=== PATIENT | male | born 1950 | race Caucasian/White ===

== ENCOUNTER 2025-08-23 11:32 | Inpatient (IN) ==
[2025-08-23] MEDS: SODIUM CHLORIDE 0.9% 1,000 ML IV SCH ×2 (12:10→17:10)
--- NOTE | 2025-08-23 12:18 | Emergency Department Note ---
Impression & Plan Leukocytosis, Acute hypotension, Acute dehydration, Elevated troponin ED Provider Note NAME: ALBANIA DUMAS AGE: 74 SEX: M : 1950 ARRIVES VIA: Walk-In INFORMANT: Patient, ED PROVIDER(S): Sergei Chaudhari MD CHIEF COMPLAINT: Weakness, fatigue MEDICAL DECISION MAKING: Patient presents due to concern for weakness and fatigue patient has had associated body aches and chills. IV was established and blood work was obtained along with COVID flu and RSV testing. The patient was ordered IV fluids and the patient was noted to be hypotensive with the patient tachycardia that was noted in triage is improved at rest at the bedside. Patient with a white count of 15. Patient did complain of generalized bodyaches and chills but no other discrete obvious symptoms. The patient's chest x-ray does not show evidence of obvious pneumonia. Hemoglobin is normal with normal platelet count. Kidney function with CAMILA baseline creatinine of around 1 almost 2 today. Patient's initial troponin 35.4. Patient does not have any active chest pain and the patient's EKG does not show evidence of obvious STEMI. Likely demand ischemia or potentially related to this fluttering in the chest unclear as to whether or not the patient had an tachyarrhythmia earlier today. Given the patient's white counts patient was ordered empiric IV Rocephin blood cultures and a lactate. Procalcitonin also ordered. Patient's lactate is normal. Pro-Jordan is elevated at 5.3. I did speak the on-call hospitalist service Kiera Ferrer PA-C and the patient was admitted by Dr. Oviedo. Discussion w/ other healthcare providers: Kiera Ferrer PA-C and Dr. Oviedo Prior /Outside records reviewed: None Differential diagnosis: Infection, dehydration, metabolic abnormality, hypo/hyperglycemia, electrolyte imbalance, anemia, UTI, pneumonia, thyroid dysfunction among others were considered. Diagnostics, as interpreted by me: ECG: Normal sinus rhythm, rate of 98, normal intervals, normal axis no ST elevations. Cardiac monitoring: An order was placed for continuous cardiac monitoring. The monitor shows a rate of 89 with sinus rhythm. Patient was placed on pulse oximetry Medical decision rules: None Imaging studies: I informally interpreted the patient's chest x-ray without obvious pneumonia with formal report to follow. HPI: Patient presents due to concern for weakness and fatigue. The patient reports that his symptoms began on Friday. He states that he felt improved Friday he went to a wrestling match but before the end of the match she was "wanting to go home" as he was being able to feel unwell again. Patient states that he has had some nausea but no vomiting. He states that he had some looser stools today. He denies any chest pains or shortness of breath. He denies any known sick contacts or recent travel. He denies any dysuria. He reports that he has had some associated fluttering in his chest. The patient states that he has had several bouts although it was more pronounced today for about 2 or 3 hours. Patient states this has resolved. He denies any prior history of known atrial flutter or fibrillation or known arrhythmia. PAST MEDICAL HISTORY: See Below PAST SURGICAL HISTORY: See Below SOCIAL HISTORY: See Below HOME MEDICATIONS: See Below ALLERGIES: See Below VITALS: See Below PHYSICAL EXAMINATION: GENERAL: NAD, non-toxic. EYE EXAM: Normal conjunctiva. PERRL, no anisocoria and EOM's grossly intact w/o pain. OROPHARYNX: Moist mucus membranes, grossly normal dentition. NECK: Trachea midline, no stridor. LUNGS: Clear to auscultation. Normal chest wall mechanics. HEART: NSR, no MRG. ABDOMEN: Abdomen soft, non-tender, no masses, no rebound or guarding. BACK: No CVA TTP. SKIN: No rashes and no bruising. UPPER EXTREMITIES: Upper extremities are grossly normal. LOWER EXTREMITIES: Grossly normal, no edema. NEURO EXAM: Awake and alert, follows commands, no obvious facial asymmetry, normal speech, moves all 4 extremities. Past Med/Surg History Problem List Elevated troponin (Acute) Acute dehydration (Acute) Acute hypotension (Acute) Leukocytosis (Acute) Hydronephrosis Sensorineural hearing loss (SNHL) of both ears Cerumen debris on tympanic membrane of left ear Hearing difficulty of left ear Prediabetes Chronic pelvic pain in male Diffusion capacity of lung (dl), decreased Chronic cough Mitral regurgitation Abnormal stress test Dyspnea on exertion Acute prostatitis Health care maintenance Elevated PSA Gastrointestinal complaints (Chronic) BPH (benign prostatic hyperplasia) (Acute) Cough variant asthma (Acute) Hyperlipidemia (Acute) Hypertension (Acute) Neuropathy (Acute) Peroneal neuropathy (Acute) Polyp, colonic (Acute) Medical History History of colon polyps maybe per pt Feeling of incomplete bladder emptying follows urology. History of hypertension hx medication and since d/c'd. Pt reports had a "one day spike" approx 09/2024, no dr eval for/resolved by the next day and no re-occurence since. 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 Has done multiple 5 k's since then and he has been fine. Hyperlipidemia Neuropathy both legs Frequent episodes of bronchitis usually 2x per yr/has occured off and on since last may 2024/last occurence mid november 2024. no current s/s. Cough variant asthma hx approx - no problems with it in yrs. Prediabetes BPH (benign prostatic hyperplasia) History of COVID-19 hx + test 07/2022 - no hx hospitalization. History of prostatitis Surgical History History of left cataract surgery (2019) History of right cataract surgery (2019) History of colonoscopy hx frequent diarrhea following colonoscopy 04/07/19 (Dr. Allen, [facility]) / consulted with and thought to be viral. Diarrhea resolved and no problems since. Has had prior colonoscopy since and no problems. History of neck surgery birthmark removed Family History Father Alzheimer disease Colonic polyp Grandmother (Paternal) Diabetes Mother Kidney disease Family history of reaction to anesthesia mom had kidney problems, when she had anesthesia kidneys were affected but would resolve. 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 Feels Safe at Home: Yes Childhood Exposure to Second-Hand Smoke: No Dental Care, Regularly: Yes Physical Activity Frequency: Daily Physical Activity Frequency Comment: walking, running Seatbelt Use: always Sunscreen Use: No Assistive Devices: Glasses Allergies Allergies Allergy/AdvReac Type Severity Reaction Status Date / Time doxycycline Allergy Unknown Rash Verified 02/09/25 09:44 Home Meds Home Medications Medication Instructions Recorded Confirmed multivitamin (Daily Multi-Vitamin 1 tab PO DAILY 01/23/21 08/23/25 tablet) gabapentin 100 mg capsule 0 mg PO UD 01/28/25 08/23/25 rosuvastatin 20 mg tablet 20 mg PO HS 01/28/25 08/23/25 zinc 50 mg tablet 0 mg PO DAILY 01/28/25 08/23/25 cyanocobalamin (vitamin B-12) 1,000 mcg sublingual DAILY 02/04/25 08/23/25 1,000 mcg sublingual tablet tamsulosin 0.4 mg capsule 0.4 mg PO .Q OTHER DAY 08/23/25 08/23/25 Previous Rx's Medication Instructions Recorded amitriptyline 25 mg tablet 25 mg PO Q OTHER DAY #30 tabs 08/31/24 cholecalciferol (vitamin D3) 50 50 mcg PO DAILY #90 caps 11/16/24 mcg (2,000 unit) capsule finasteride 5 mg tablet 5 mg PO HS #90 tabs 02/14/25 Results & Data (ED) Vital Signs Vital Signs - 24 hr 08/23/25 11:40 08/23/25 12:17 08/23/25 13:33 Temperature 36.0 C L Temperature Source Temporal Artery Scan Pulse Rate 103 H 81 Pulse Rate [Right Finger] 80 Pulse Rate from SpO2 Sensor Respiratory Rate 20 18 Respiratory Effort / Characteristics Non-Labored Spontaneous Respiratory Depth Normal Normal Respiratory Pattern Regular Blood Pressure 82/49 L Blood Pressure [Right Arm] 114/70 Blood Pressure Mean 60 Blood Pressure Mean [Right Arm] 84 Pulse Oximetry 99 95 Oxygen Delivery Method Room Air Room Air Sepsis Recent Fever Within 48 Hours No Sepsis New/Unexplained Change in Mental Status No Sepsis Action Taken by Nursing No Action Required 08/23/25 14:41 08/23/25 15:00 08/23/25 15:30 Temperature Temperature Source Pulse Rate 74 77 Pulse Rate [Right Finger] 74 Pulse Rate from SpO2 Sensor 75 77 Respiratory Rate 18 15 12 Respiratory Effort / Characteristics Respiratory Depth Normal Respiratory Pattern Regular Blood Pressure 117/83 142/72 H Blood Pressure [Right Arm] 98/70 L Blood Pressure Mean 96 94 Blood Pressure Mean [Right Arm] 79 Pulse Oximetry 98 97 97 Oxygen Delivery Method Room Air Room Air Room Air Sepsis Recent Fever Within 48 Hours Sepsis New/Unexplained Change in Mental Status Sepsis Action Taken by Residential Medications Current Medication List: was personally reviewed by me Laboratory Data Attestation: I reviewed the patient's lab results. 08/23/25 11:55 08/23/25 11:55 Lab Results 08/23/25 08/23/25 08/23/25 Range/Units 11:55 12:11 14:12 WBC 15.30 H (4.8-10.8) K/ul RBC 5.21 (4.70-6.10) M/uL Hgb 15.6 (14.0-18.0) g/dL Hct 46.2 (42.0-52.0) % MCV 88.7 (80.0-100.0) fL MCH 29.9 (25.0-34.0) pg MCHC 33.8 (32.0-36.0) g/dL RDW Std Deviation 43.9 (36.4-46.3) fL RDW Coeff of Elana 13.4 (11.5-14.5) % Plt Count 221 (130-400) K/uL MPV 11.1 (9.4-12.4) fL Immature Gran % (Auto) 0.8 % Neut % (Auto) 82.6 % Lymph % (Auto) 7.7 % [place] % (Auto) 8.4 % Eos % (Auto) 0.2 % Baso % (Auto) 0.3 % Neut # (Auto) 12.64 H (1.40-6.50) K/uL Lymph # (Auto) 1.18 L (1.20-3.40) K/uL [place] # (Auto) 1.28 H (0.11-0.59) K/uL Eos # (Auto) 0.03 (0.00-0.50) K/uL Baso # (Auto) 0.05 (0.00-0.20) K/uL Immature Gran # (Auto) 0.12 (0.01-0.20) K/uL Sodium 138 (136-145) mmol/L Potassium 4.0 (3.5-5.1) mmol/L Chloride 102 (98-107) mmol/L Carbon Dioxide 24 (21-32) mmol/L Anion Gap 12 H (3-11) BUN 33 H (6-23) mg/dl Creatinine 1.92 H (0.6-1.4) mg/dl Est Cr Clr Drug Dosing 40.2 ml/min eGFR 35.66 BUN/Creatinine Ratio 17.2 (10-20) Glucose 153 H (70-99(Fasting)) mg/dl Lactate 1.3 (0.4-2.0) mmol/L Calcium 9.5 (8.6-10.3) mg/dl Total Bilirubin 1.2 H (0.2-1.0) mg/dl AST 40 H (13-39) U/L ALT 36 (7-52) U/L Alkaline Phosphatase 73 (34-104) U/L Troponin I High Sens 35.4 H (0-20) pg/ml Total Protein 7.3 (6.0-8.3) gm/dl Albumin 4.2 (3.4-5.0) gm/dl Globulin 3.1 (2.5-4.0) gm/dl Albumin/Globulin Ratio 1.4 (0.9-2) Procalcitonin 5.32 H (0-0.5) ng/ml TSH 4.685 H (0.300-4.500) uIu/ml Free T4 0.83 (0.61-1.60) ng/dl SARS-CoV-2 (PCR) NEGATIVE (Negative) Influenza Type A (PCR) Negative (Neg) Influenza Type B (PCR) Negative (Neg) RSV (RT-PCR) Negative (Neg) Administered Medications Sodium Chloride (Nss) 1,000 mls @ 80 mls/hr IV .[id number] QUITA Stop: 08/26/25 15:44 Last Admin: 08/23/25 17:10 Dose: 80 mls/hr Documented By: GARO Discontinued Medications Sodium Chloride (Nss) 1,000 mls @ 999 mls/hr IV .[id number] QUITA Stop: 08/23/25 13:15 Last Infusion: 08/23/25 14:42 Dose: Infused Documented By: Admin: 08/23/25 12:10 Dose: 999 mls/hr Documented By: ANDREW Ceftriaxone Sodium (Rocephin) 2,000 mg in 50 mls @ 100 mls/hr IV NOW STA Stop: 08/23/25 14:46 Last Infusion: 08/23/25 16:46 Dose: Infused Documented By: Admin: 08/23/25 14:42 Dose: 100 mls/hr Documented By: Imaging Data Radiologist's Impression: Chest X-Ray 08/23/25 11:48 XR chest 1V portable HISTORY: 74 years-old Male weakness COMPARISON: 11/16/2024 TECHNIQUE: AP view the chest FINDINGS: Cardiomediastinal and hilar silhouettes are within normal limits. Right lung apex is partially outside the field of view. No pneumothorax, pleural effusion, airspace consolidation or pulmonary edema. Bones of the chest appear grossly intact. IMPRESSION: No acute process of the chest. ACT 112: Negative or not required by law. The above report was generated using voice recognition software. It may contain grammatical, syntax or spelling errors. Electronically signed by: Devin Leung M.D. 08/23/2025 12:39 PM Discharge Plan Visit Data Chief Complaint: Flu Like Symptoms Stated Complaint: WEAKNESS, CHILLS DAIREAH, IRREGULAR HEART BEAT ED Provider: Sergei Chaudhari Discharge Problem: Leukocytosis, Acute hypotension, Acute dehydration, Elevated troponin Patient Disposition: Admitted As Inpatient Condition: Good Discharge Problem: Leukocytosis Qualifiers: Leukocytosis type: unspecified Qualified Code(s): D72.829 - Elevated white blood cell count, unspecified
[2025-08-23 12:35] LABS: Hematocrit (blood only) 46.2 % (42.0-52.0); Hemoglobin 15.6 g/dL (14.0-18.0); Immature Granulocytes # (auto) 0.12 K/uL (0.01-0.20); Immature Granulocytes % (auto) 0.8 %; Mean Corpuscular Hemoglobin 29.9 pg (25.0-34.0); Mean Corpuscular Volume 88.7 fL (80.0-100.0); Platelet Count 221 K/uL (130-400); RDW Standard Deviation 43.9 fL (36.4-46.3); Red Blood Count 5.21 M/uL (4.70-6.10); White Blood Count 15.30 K/ul (4.8-10.8)
--- NOTE | 2025-08-23 12:41 | XRay Report ---
XR chest 1V portable HISTORY: 74 years-old Male weakness COMPARISON: 11/16/2024 TECHNIQUE: AP view the chest FINDINGS: Cardiomediastinal and hilar silhouettes are within normal limits. Right lung apex is partially outsid e the field of view. No pneumothorax, pleural effusion, airspace consolidation or pulmonary edema. Luke ravinder of the chest appear grossly intact. IMPRESSION: No acute process of the chest. ACT 112: Negative or not required by law. The above report was generated using voice recognition software. It may contain grammatical, syntax o r spelling errors. Electronically signed by: Devin Leung M.D. 08/23/2025 12:39 PM
[2025-08-23 12:49] LABS: Alanine Aminotransferase 36.0 U/L (7-52); Albumin Globulin Ratio 1.4 (0.9-2); Albumin Level 4.2 gm/dl (3.4-5.0); Alkaline Phosphatase 73.0 U/L (34-104); Anion Gap 12.0 (3-11); Bilirubin,Total 1.2 mg/dl (0.2-1.0); Blood Urea Nitrogen 33.0 mg/dl (6-23); Calcium 9.5 mg/dl (8.6-10.3); Carbon Dioxide 24.0 mmol/L (21-32); Chloride 102.0 mmol/L (98-107); Creatinine Clr Calc Pharmacy 40.2 ml/min; Globulin 3.1 gm/dl (2.5-4.0); Glucose 153.0 mg/dl (70-99(Fasting)); Potassium 4.0 mmol/L (3.5-5.1); Sodium 138.0 mmol/L (136-145); Total Protein 7.3 gm/dl (6.0-8.3)
[2025-08-23 13:03] LABS: Thyroid Stimulating Hormone 4.685 uIu/ml (0.300-4.500)
[2025-08-23 13:23] LABS: Influenza A virus by PCR Negative (Neg); Influenza B virus by PCR Negative (Neg); SARS CoV2 RNA(COVID-19) Ceph NEGATIVE (Negative)
[2025-08-23 13:38] LABS: T4 Free Thyroxine 0.83 ng/dl (0.61-1.60)
--- NOTE | 2025-08-23 14:40 | Hospitalist Progress Note ---
"Date of Service August 23, 2025 Assessment & Plan (1) Weakness: (2) Diarrhea: (3) Palpitations: (4) CAMILA (acute kidney injury): Plan Pt is a 74 y/o M with a PMHx significant for HTN, HLD, BPH, Asthma, Neuropathy, Prediabetes who presented to the ED c/o weakness and diarrhea #Weakness | Diarrhea | Palpitations - Troponin in ED 35.4; EKG on admission w/out signs of STEMI; CXR w/out acute processes; Procal 5.3 on admission -Deferred Abx at this time d/t pt stability + no clear signs of infection -Stool Studies ordered -PT/OT Eval and Treat -Troponin, CBC, BMP, Procalcitonin, and CRP in AM -Admit Med/Tele #CAMILA - -Suspect from dehydration -IVF NSS 1000mL @ 80mL/hr #HLD | HTN - -Continue Rosuvastatin #BPH - No acute concerns -Continue Tamsulosin, Finasteride #Peroneal Neuropathy - no acute concerns -Continue Amitriptyline #Asthma - no acute concerns, no home meds listed for management VTE Proph: Lovenox Dispo: Admit Observation, Med/Tele Subjective Pt is a 74 y/o M with a PMHx significant for HTN, HLD, BPH, Asthma, Neuropathy, Prediabetes who presented to the ED c/o weakness and diarrhea. 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 Pt notes that later that night, he began to develop some chills and nausea. He notes that into the AM of 12/8 his fatigue progressed and he began to feel physically weak. He notes that he would have to take breaks when ambulating to the the bathroom. He notes that this AM he was experiencing some Nausea which was accompanied by diarrhea that he describes to be liquid. He notes that he experienced some palpitations around 0200 this AM which lasted until the pt reported to the ED. He notes that after receiving some IVF, his palpitations seemed to decrease. 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 Pt notes that he hasn't taken any of his home meds since the onset of his illness and denies trying anything OTC to help with his sx. Pt admits to increased urinary frequency, decreased appetite, weakness, lig htheadedness, and feeling unsteady in his feet. Pt denies difficulty sleeping, cough, congestion, SOB, CP, vomiting, constipation, and changes in vision. Pt denies any previous episodes similar in nature; he notes that he was around someone during a meeting who was coughing Friday AM. Pt was transported to the ED by his . While in the ED, the patient received A chest x-ray that was negative for pneumonia. He additionally had his troponins evaluated while in the emergency room at 35.4 and an EKG was performed which did not demonstrate any obvious signs of STEMI. Patient's kidney function revealed mild CAMILA with a baseline creatinine of around 1. patient's Pro-Jordan was elevated at around 5.3 with no obvious signs of infection. Patient was admitted to the hospital for further evaluation and care Review of Systems Review of Systems: All systems reviewed & are unremarkable except as noted in Subjective Physical Exam Physical Exam: General: Pt is a 74 y/o WD/WN M in NAD in bed. VS: reviewed, remarkable: P 103 bpm upon initial presentation Skin: Warm and dry; no lesions or ulcerations Respiratory: CTA bilat, no adventitious sounds noted. Chest expansion is full and symmetrical Cardio: RRR no murmurs Abdomen: Round, normoactive BS x4, nontender to palpation MSK: FROM of extremities, no deformities Extremities: no edema Neuro: A&Ox4, cooperative Results & Data Results & Data Vital Signs (Past 12 Hours) Vital Signs Temp Pulse Pulse Resp BP BP Pulse Ox 08/23/25 13:33 80 18 114/70 95 08/23/25 12:17 81 08/23/25 11:40 96.8 F L 103 H 20 82/49 L 99 O2 Del Method 08/23/25 13:33 Room Air 08/23/25 12:17 08/23/25 11:40 Room Air Laboratory Results Reviewed: CBC, CMP, Lactate, Procalcitonin, TSH, T4, Covid/Flu/RSV, Strep PCR Diagnostic Findings Reviewed: CXR PG Care Time/CCT Total # of Minutes Spent Total Time Spent with Patient: Total time spent is greater than 50% in coordination of care (as documented) at patient's floor/unit and/or counseling patient: Coding Level of Care Code 35612 SUB INP/OBS CARE 3/50MIN Diagnoses Weakness R53.1 Diarrhea R19.7 Palpitations R00.2 CAMILA (acute kidney injury) N17.9"
[2025-08-23] MEDS: cefTRIAXone SODIUM 2,000 MG/50 ML BAG IV STA (14:42)
[2025-08-23] MEDS ORDERED: MELATONIN 3 MG TAB PO PRN (15:45)
[2025-08-23] MEDS ORDERED: POLYETHYLENE (MIRALAX) 17 GM PACK PO PRN (15:45)
[2025-08-23] MEDS ORDERED: ONDANSETRON INJ 2 MG/ML 2 ML VIAL IV PRN (15:45)
[2025-08-23] MEDS ORDERED: ACETAMINOPHEN 325 MG TAB PO PRN (15:45)
[2025-08-23] MEDS: ROSUVASTATIN CALCIUM 20 MG TAB PO SCH (20:41)
[2025-08-23] MEDS: FINASTERIDE 5 MG TAB PO SCH (20:41)
[2025-08-23] MEDS: METOPROLOL TARTRATE 25 MG TAB PO SCH (20:41)
[2025-08-24 07:14] LABS: Anion Gap 8.0 (3-11); Blood Urea Nitrogen 33.0 mg/dl (6-23); Calcium 7.9 mg/dl (8.6-10.3); Carbon Dioxide 22.0 mmol/L (21-32); Chloride 108.0 mmol/L (98-107); Creatinine Clr Calc Pharmacy 50.8 ml/min; Glucose 151.0 mg/dl (70-99(Fasting)); Potassium 3.7 mmol/L (3.5-5.1); Sodium 138.0 mmol/L (136-145)
[2025-08-24 07:34] LABS: Hematocrit (blood only) 35.5 % (42.0-52.0); Hemoglobin 11.9 g/dL (14.0-18.0); Immature Granulocytes # (auto) 0.04 K/uL (0.01-0.20); Immature Granulocytes % (auto) 0.4 %; Mean Corpuscular Hemoglobin 29.9 pg (25.0-34.0); Mean Corpuscular Volume 89.2 fL (80.0-100.0); Platelet Count 163 K/uL (130-400); RDW Standard Deviation 43.9 fL (36.4-46.3); Red Blood Count 3.98 M/uL (4.70-6.10); White Blood Count 9.11 K/ul (4.8-10.8)
--- NOTE | 2025-08-24 08:23 | Hospitalist Progress Note ---
"Date of Service August 24, 2025 Assessment & Plan (1) Weakness: (2) Diarrhea: (3) Palpitations: (4) CAMILA (acute kidney injury): Plan Pt is a 74 y/o M with a PMHx significant for HTN, HLD, BPH, Asthma, Neuropathy, Prediabetes who presented to the ED c/o weakness and diarrhea #Atrial Flutter w/out RVR - Noted overnight 08/23 w/ HR 140s; Troponin Peaked 35.4 08/23; EKG on admission w/out signs of STEMI -Started Metoprolol Tartrate 25mg PO BID -Consult Cardiology -Continue to Monitor #CAMILA - 1.92 Cr in ED; Improving on 08/24 -Suspect from dehydration -IVF NSS 1000mL @ 80mL/hr -Continue to trend BMP #Weakness | Diarrhea - RESOLVED; pt asx; CXR w/out acute processes; Procal 5.3 on admission -Deferred Abx at this time d/t pt stability + no clear signs of infection -Stool Studies ordered -CBC, BMP, Procalcitonin, and CRP in AM -PT/OT Eval and Treat #HLD | HTN - No acute concerns; Continue Rosuvastatin #BPH - No acute concerns; Continue Tamsulosin, Finasteride #Peroneal Neuropathy - No acute concerns; Continue Amitriptyline #Asthma - no acute concerns, no home meds listed for management VTE Proph: Lovenox Dispo: Admit Med/Tele - awaiting further evaluation Admission and Anticipated Discharge Date Admission Date: August 23, 2025 Subjective Pt is laying in bed today in NAD, at bedside. Pt notes that he overall feels well today with the exception of some palpitations. He notes they are most noticeable when ambulating. Pt otherwise denies cough, congestion, sore throat, SOB, CP, abdominal discomfort/pain, N/V/D, and changes in appetite. Last BM AM of 08/23. Telemetry: Converted to A-flutter 19:09 (08/23) w/ HR up to 140s, pt was started on BB, remains in A-flutter this AM w/ HR 70s-80s Review of Systems Review of Systems: All systems reviewed & are unremarkable except as noted in Subjective Physical Exam Physical Exam: General: Pt is a 74 y/o WD/WN M in NAD in bed. VS: reviewed, unremarkable Skin: Warm and dry; no lesions or ulcerations Respiratory: CTA bilat, no adventitious sounds noted. Chest expansion is full and symmetrical Cardio: RRR no murmurs Abdomen: Round, normoactive BS x4, nontender to palpation MSK: FROM of extremities, no deformities Extremities: no edema Neuro: A&Ox4, cooperative Results & Data Results & Data Vital Signs (Past 12 Hours) Vital Signs Temp Pulse Pulse Resp BP BP Pulse Ox 08/24/25 08:01 98.1 F 74 18 114/68 95 08/24/25 03:31 98.8 F 80 16 119/69 95 08/24/25 00:05 99.0 F 80 16 122/73 96 08/23/25 22:03 92 H O2 Del Method 08/24/25 08:01 Room Air 08/24/25 03:31 Room Air 08/24/25 00:05 Room Air 08/23/25 22:03 PG Care Time/CCT Total # of Minutes Spent Total Time Spent with Patient: Total time spent is greater than 50% in coordination of care (as documented) at patient's floor/unit and/or counseling patient: Coding Level of Care Code 46295 SUB INP/OBS CARE 2/35MIN Diagnoses Weakness R53.1 Diarrhea R19.7 Palpitations R00.2 CAMILA (acute kidney injury) N17.9"
[2025-08-24] MEDS: CYANOCOBALAMIN (B-12) 500 MCG TABLET PO SCH (08:43)
[2025-08-24] MEDS: MULTIVITAMIN TAB PO SCH (08:43)
[2025-08-24] MEDS: CHOLECALCIFEROL 25 MCG (1000 UNITS) TAB PO SCH (08:44)
[2025-08-24 09:00] LABS: Albumin Level 3.1 gm/dl (3.4-5.0)
--- NOTE | 2025-08-24 15:02 | Cardiology Consultation ---
Date of Consultation August 24, 2025 Assessment & Plan (1) Palpitations: (2) Elevated troponin: (3) Atrial flutter: Plan 1. Palpitations: He has had palpitations for almost 30 years, although they were infrequent initially and more frequent recently. I doubt he has had par oxysmal atrial flutter for that long, perhaps he had SVT (his symptoms are suggestive of that historically), possibly that is triggering atrial flutter but that did not occur here in the hospital. His more recent palpitations might be atrial flutter or fibrillation but have not been recorded. We may want to record them if they persist so that we know what he is feeling. 2. Elevated troponin: His troponin was minimally elevated and rapidly returned to normal by the next measurement, I would not pursue coronary evaluation. 3. Atrial flutter: He should be on an anticoagulant, currently he is on enoxaparin but I would start Eliquis. His AXA6AT2-OBAd score is 2 I believe (age greater than 75). His dose would be 5 mg twice a day and I am going to start it this evening. He is in agreement. He would like to illuminate the symptoms of palpitations he has, assuming they are atrial arrhythmias and antiarrhythmic may be warranted. I want to get an echo before we do that and I will order that so I am not going to start an antiarrhythmic tonight. I would also like to see if this is going to terminate spontaneously which is likely. History of Present Illness Reason for Consultation: Atrial fibrillation/flutter Attending Physician: Stewart Oviedo MD History of Present Illness This is a 74-year-old male who we have seen only once in the office in 2020 (Dr. Rubio) for an abnormal stress test, however further evaluation was not recommended and risk factor modification was suggested. He did have mild mitral regurgitation at the time with normal left ventricular size and function and mild concentric left ventricular hypertrophy, in addition he had hyperlipidemia. He was in his usual state of health when he presented to the emergency room on August 23, 2025 with weakness and fatigue. While hospitalized on telemetry he developed atrial flutter with intermittent rapid conduction although for the most part well-controlled heart rate of 70 to 80 bpm. This occurred at around 7 PM and was maintained as of noon today. As far as I know he does not have a history of this. He is currently on DVT prophylaxis with enoxaparin but no other anticoagulant. He does take metoprolol tartrate 25 mg twice a day. He does describe a long history of palpitations which he relates to his atrial flutter, however these dates back to the late when he had sudden onset of palpitations and lightheadedness and that may have been some type of SVT, it was not diagnosed and it was relatively brief. Over the years he has had recurrent episodes but infrequently, more recently however the episodes have been more frequent. He describes multiple episodes of what sounds like his current symptoms before presenting to the hospital, it is not clear to me whether his symptoms had resolved before getting here or not. These palpitations are different than his weakness that caused his presentation. He has not worn a monitor. He does not have exertional symptoms except when he is in this abnormal rhythm (when he is having palpitations), he is little bit worried about strenuous activity as he does not feel well when he is having the symptoms. He does have acute kidney disease, his creatinine was 1.9 on presentation and 1.5 this morning with a background of a normal creatinine most recently October 2024. His high-sensitivity troponin was minimally elevated on presentation and normal this morning. This is not likely indicative of an acute coronary event. Allergies Allergy/AdvReac Type Severity Reaction Status Date / Time doxycycline Allergy Unknown Rash Verified 02/09/25 09:44 Home Medications Medication Instructions Recorded Confirmed Type multivitamin (Daily Multi-Vitamin 1 tab PO DAILY 01/23/21 08/23/25 History tablet) amitriptyline 25 mg tablet 25 mg PO Q OTHER DAY #30 tabs 08/31/24 08/23/25 Rx cholecalciferol (vitamin D3) 50 50 mcg PO DAILY #90 caps 11/16/24 08/23/25 Rx mcg (2,000 unit) capsule gabapentin 100 mg capsule 0 mg PO UD 01/28/25 08/23/25 History rosuvastatin 20 mg tablet 20 mg PO HS 01/28/25 08/23/25 History zinc 50 mg tablet 0 mg PO DAILY 01/28/25 08/23/25 History cyanocobalamin (vitamin B-12) 1,000 mcg sublingual DAILY 02/04/25 08/23/25 History 1,000 mcg sublingual tablet finasteride 5 mg tablet 5 mg PO HS #90 tabs 02/14/25 08/23/25 Rx tamsulosin 0.4 mg capsule 0.4 mg PO .Q OTHER DAY 08/23/25 08/23/25 History Patient History Medical History History of colon polyps maybe per pt Feeling of incomplete bladder emptying follows urology. History of hypertension hx medication and since d/c'd. Pt reports had a "one day spike" approx 09/2024, no dr eval for/resolved by the next day and no re-occurence since. 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 Has done multiple 5 k's since then and he has been fine. Hyperlipidemia Neuropathy both legs Frequent episodes of bronchitis usually 2x per yr/has occured off and on since last may 2024/last occurence mid november 2024. no current s/s. Cough variant asthma hx approx - no problems with it in yrs. Prediabetes BPH (benign prostatic hyperplasia) History of COVID-19 hx + test 07/2022 - no hx hospitalization. History of prostatitis Surgical History History of left cataract surgery (2019) History of right cataract surgery (2019) History of colonoscopy hx frequent diarrhea following colonoscopy 04/07/19 (Dr. Allen, [facility]) / consulted with and thought to be viral. Diarrhea resolved and no problems since. Has had prior colonoscopy since and no problems. History of neck surgery birthmark removed Family History Father Alzheimer disease Colonic polyp Grandmother (Paternal) Diabetes Mother Kidney disease Family history of reaction to anesthesia mom had kidney problems, when she had anesthesia kidneys were affected but would resolve. 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 He is sitting at his bedside. HEENT: Unremarkable Neck: No jugular venous distention, carotid pulses are irregular but otherwise normal and equal bilaterally without bruits. Pulmonary: Clear to auscultation bilaterally. Cardiac: Irregular rhythm with no murmur, gallop or rub. Abdomen: Soft, nontender with normal bowel sounds. Extremities: No edema. Neurologic: No focal findings. Skin: No rash, ecchymoses or petechiae. Results & Data Vital Signs (Past 12 Hours) Vital Signs Temp Pulse Pulse Resp BP BP Pulse Ox 08/24/25 14:26 76 08/24/25 08:01 36.7 C 74 18 114/68 95 08/24/25 08:00 08/24/25 08:00 72 08/24/25 03:31 37.1 C 80 16 119/69 95 O2 Del Method 08/24/25 14:26 08/24/25 08:01 Room Air 08/24/25 08:00 Room Air 08/24/25 08:00 08/24/25 03:31 Room Air Laboratory Results Cardiac Enzymes 08/24/25 Range/Units 06:15 Troponin I High Sens 13.5 D (0-20) pg/ml CBC 08/24/25 Range/Units 06:15 WBC 9.11 (4.8-10.8) K/ul RBC 3.98 L (4.70-6.10) M/uL Hgb 11.9 L D (14.0-18.0) g/dL Hct 35.5 L (42.0-52.0) % Plt Count 163 (130-400) K/uL Neut # (Auto) 6.87 H (1.40-6.50) K/uL Lymph # (Auto) 1.12 L (1.20-3.40) K/uL [place] # (Auto) 1.02 H (0.11-0.59) K/uL Eos # (Auto) 0.03 (0.00-0.50) K/uL Baso # (Auto) 0.03 (0.00-0.20) K/uL Comprehensive Metabolic Panel 08/24/25 Range/Units 06:15 Sodium 138 (136-145) mmol/L Potassium 3.7 (3.5-5.1) mmol/L Chloride 108 H (98-107) mmol/L Carbon Dioxide 22 (21-32) mmol/L BUN 33 H (6-23) mg/dl Creatinine 1.52 H D (0.6-1.4) mg/dl Glucose 151 H (70-99(Fasting)) mg/dl Calcium 7.9 L (8.6-10.3) mg/dl Albumin 3.1 L (3.4-5.0) gm/dl Intake and Output 08/23/25 08/24/25 08/24/25 22:59 06:59 14:59 Intake Total 620 / 2610.667 990.667 / 2610.667 Balance 620 / 2610.667 990.667 / 2610.667 Intake: IV 50 / 2040.667 990.667 / 2040.667 Sodium Chloride 0.9% 1,000 ml @ 990.667 / 990.667 80 mls/hr IV .[id number] [facility] Rx#: [id number] cefTRIAXone SODIUM 2,000 mg In 50 / 50 50 ml @ 100 mls/hr IV NOW STA Rx#:[id number] Oral 570 / 570 Other: # Unmeasured Voids 1 Weight 94.8 kg Weight Measurement Method Standing Scale Diagnostic Findings Telemetry: Initially sinus rhythm with conversion to atrial flutter at 1909 on August 23, 2025, that has remained with a heart rate typically of 70-80 but increased at times. PG Care Time/CCT Total # of Minutes Spent Total Time Spent with Patient: Total time spent is greater than 50% in coordination of care (as documented) at patient's floor/unit and/or counseling patient: Coding Level of Care Code 89966 INT INP/OBS CARE 3/75MIN Diagnoses Palpitations R00.2 Elevated troponin R79.89 Atrial flutter I48.92
[2025-08-24 16:01] LABS: Adenovirus F 40/41 PCR Not Detected (NotDetected); Campylobacter PCR Not Detected (NotDetected); Enteroaggregative E.coli(EAEC) Not Detected (NotDetected); Shiga-like Toxin E.coli (STEC) Not Detected (NotDetected); Vibrio species PCR Not Detected (NotDetected)
[2025-08-24] MEDS: APIXABAN 5 MG TABLET PO SCH (20:05)
[2025-08-25] MEDS: TAMSULOSIN HCL 0.4 MG CAP PO SCH (07:57)
[2025-08-25] MEDS: AMITRIPTYLINE HCL 25 MG TAB PO SCH (07:58)
--- NOTE | 2025-08-25 08:25 | Hospitalist Progress Note ---
"Date of Service August 25, 2025 Assessment & Plan (1) Weakness: (2) Diarrhea: (3) Palpitations: (4) CAMILA (acute kidney injury): Plan Pt is a 74 y/o M with a PMHx significant for HTN, HLD, BPH, Asthma, Neuropathy, Prediabetes who presented to the ED c/o weakness and diarrhea #Atrial Flutter w/out RVR - Noted overnight 08/23 w/ HR 140s; Troponin Peaked 35.4 08/23; EKG on admission w/out signs of STEMI; Echo 08/25 with mild LVH and apical anterolateral hypokinesis -Cardio Consulted: Initiated Eliquis, antiarrhythmics pending results of echo -Started Metoprolol Tartrate 25mg PO BID -Continue to Monitor #CAMILA - RESOLVED; 1.92 Cr in ED -Suspect from dehydration -Discontinue IVF -Continue to trend BMP #Weakness | Diarrhea - RESOLVED; pt asx; CXR w/out acute processes; Procal 5.3 on admission; Stool Study 08/23 negative -Deferred Abx at this time d/t pt stability, no clear signs of infection, and improving Procal/CRP -CBC, BMP, Procalcitonin, and CRP in AM -PT/OT Eval: Pt safe to return to previous living arrangement #HLD | HTN - No acute concerns; Continue Rosuvastatin #BPH - No acute concerns; Continue Tamsulosin, Finasteride #Peroneal Neuropathy - No acute concerns; Continue Amitriptyline #Asthma - no acute concerns, no home meds listed for management VTE Proph: Jyoti Dispo: Admit Med/Tele - awaiting further evaluation Admission and Anticipated Discharge Date Admission Date: August 24, 2025 Subjective Pt was laying in bed today in NAD, at bedside. Pt states that he overall is feeling well today and is only occasionally appreciating palpitations. Pt notes that he's feeling a bit tired today, but overall better than previously. Pt denies cough, congestion, sore throat, SOB, CP, N/V/D, and abdominal discomfort. Telemetry: Aflutter w/ occasional PVCs, typically in the 70s w/ occasional jumps up to 150s vero with physical exertion. Review of Systems Review of Systems: All systems reviewed & are unremarkable except as noted in HPI & below Physical Exam Physical Exam: General: Pt is a 74 y/o WD/WN M in NAD in bed. VS: reviewed, unremarkable Skin: Warm and dry; no lesions or ulcerations Respiratory: CTA bilat, no adventitious sounds noted. Chest expansion is full and symmetrical Cardio: Reg rate, w/ irreg rhythm, no murmurs Abdomen: Round, normoactive BS x4, nontender to palpation MSK: FROM of extremities, no deformities Extremities: no edema Neuro: A&Ox4, cooperative Results & Data Results & Data Vital Signs (Past 12 Hours) Vital Signs Temp Pulse Pulse Resp BP BP Pulse Ox 08/25/25 07:51 97.5 F L 78 18 102/57 L 96 08/25/25 07:25 143 H 08/25/25 01:45 97.9 F 76 16 120/70 96 08/24/25 23:00 77 08/24/25 22:28 98.2 F 80 18 117/50 L 97 O2 Del Method 08/25/25 07:51 Room Air 08/25/25 07:25 08/25/25 01:45 Room Air 08/24/25 23:00 08/24/25 22:28 Room Air Laboratory Results Reviewed: Stool Study PG Care Time/CCT Total # of Minutes Spent Total Time Spent with Patient: Total time spent is greater than 50% in coordination of care (as documented) at patient's floor/unit and/or counseling patient: Coding Level of Care Code 03064 SUB INP/OBS CARE 2/35MIN Diagnoses Weakness R53.1 Diarrhea R19.7 Palpitations R00.2 CAMILA (acute kidney injury) N17.9"
[2025-08-25 08:53] LABS: Hematocrit (blood only) 37.4 % (42.0-52.0); Hemoglobin 12.5 g/dL (14.0-18.0); Immature Granulocytes # (auto) 0.02 K/uL (0.01-0.20); Immature Granulocytes % (auto) 0.3 %; Mean Corpuscular Hemoglobin 29.9 pg (25.0-34.0); Mean Corpuscular Volume 89.5 fL (80.0-100.0); Platelet Count 194 K/uL (130-400); RDW Standard Deviation 43.7 fL (36.4-46.3); Red Blood Count 4.18 M/uL (4.70-6.10); White Blood Count 7.19 K/ul (4.8-10.8)
[2025-08-25] MEDS ORDERED: ENOXAPARIN INJ 40 MG/0.4 ML SYR SQ SCH (09:00)
[2025-08-25 09:09] LABS: Anion Gap 7.0 (3-11); Blood Urea Nitrogen 26.0 mg/dl (6-23); Calcium 8.1 mg/dl (8.6-10.3); Carbon Dioxide 25.0 mmol/L (21-32); Chloride 108.0 mmol/L (98-107); Creatinine Clr Calc Pharmacy 59.8 ml/min; Glucose 111.0 mg/dl (70-99(Fasting)); Potassium 3.9 mmol/L (3.5-5.1); Sodium 140.0 mmol/L (136-145)
--- NOTE | 2025-08-25 10:23 | Electrocardiogram Report ---
Test Reason : Blood Pressure : */* mmHG Vent. Rate : 109 BPM Atrial Rate : * BPM P-R Int : * ms QRS Dur : 80 ms QT Int : 302 ms P-R-T Axes : * 43 78 degrees QTcB Int : 406 ms Poor data quality, interpretation may be adversely affected Atrial fibrillation with rapid ventricular response Nonspecific T wave abnormality Abnormal ECG When compared with ECG of 23-Aug-2025 11:48, (unconfirmed) Atrial fibrillation has replaced Sinus rhythm T wave inversion now evident in Lateral leads Confirmed by Clint Covarrubias ([id number]) on 08/25/2025 10:23:43 AM Referred By: Mariana Mckay Confirmed By: Clint Covarrubias
--- NOTE | 2025-08-25 13:48 | XCELERA ---
[id number]
--- NOTE | 2025-08-25 15:13 | Cardiology Progress Note ---
Date of Service August 25, 2025 Assessment & Plan (1) Palpitations: (2) Elevated troponin: (3) Atrial flutter: Plan 1. Palpitations: He has had palpitations for almost 30 years, although they were infrequent initially and more frequent recently. I doubt he has had paroxysmal atrial flutter for that long, perhaps he had SVT (his symptoms are suggestive of that historically), possibly that is triggering atrial flutter but that did not occur here in the hospital. His more recent palpitations might be atrial flutter or fibrillation but have not been recorded. We may want to record them if they persist so that we know what he is feeling. 2. Elevated troponin: His troponin was minimally elevated and rapidly returned to normal by the next measurement, I would not pursue coronary evaluation. 3. Atrial flutter: He should be on an anticoagulant, I started Eliquis. His HAE5EU3-MCCd score is 2 I believe (age greater than 75). His dose is 5 mg twice a day and he is tolerating it well. He would prefer to eliminate the symptoms of palpitations he has, assuming they are atrial arrhythmias and antiarrhythmic may be warranted. With normal left ventricular function we can start flecainide which I will start today. I discussed this with he and his . We will continue the metoprolol and the Eliquis. Admission and Anticipated Discharge Date Admission Date: August 24, 2025 Subjective His was present during my evaluation today. He is feeling well today with virtually no symptoms related to his arrhythmia. When he gets up and walks around his heart rate increases and I believe he is aware of that but he is not uncomfortable with it. Physical Exam Physical Exam: Constitutional: Alert, cooperative and in no distress. HEENT: Unremarkable Neck: No jugular venous distention, carotid pulses are normal and equal bilaterally without bruits. Pulmonary: Clear to auscultation bilaterally. Cardiac: Regular rhythm with no murmur, gallop or rub. Abdomen: Soft, nontender with normal bowel sounds. Extremities: No edema. Neurologic: No focal findings. Gait is steady. Skin: No rash, ecchymoses or petechiae. Results & Data Vital Signs (Past 12 Hours) Vital Signs Temp Pulse Pulse Resp BP BP Pulse Ox 08/25/25 11:28 36.4 C L 77 20 108/65 97 08/25/25 07:51 36.4 C L 78 18 102/57 L 96 08/25/25 07:25 143 H O2 Del Method 08/25/25 11:28 Room Air 08/25/25 07:51 Room Air 08/25/25 07:25 Laboratory Results CBC 08/25/25 Range/Units 08:37 WBC 7.19 (4.8-10.8) K/ul RBC 4.18 L (4.70-6.10) M/uL Hgb 12.5 L (14.0-18.0) g/dL Hct 37.4 L (42.0-52.0) % Plt Count 194 (130-400) K/uL Neut # (Auto) 4.92 (1.40-6.50) K/uL Lymph # (Auto) 1.08 L (1.20-3.40) K/uL [place] # (Auto) 1.04 H (0.11-0.59) K/uL Eos # (Auto) 0.09 (0.00-0.50) K/uL Baso # (Auto) 0.04 (0.00-0.20) K/uL Comprehensive Metabolic Panel 08/25/25 Range/Units 08:37 Sodium 140 (136-145) mmol/L Potassium 3.9 (3.5-5.1) mmol/L Chloride 108 H (98-107) mmol/L Carbon Dioxide 25 (21-32) mmol/L BUN 26 H (6-23) mg/dl Creatinine 1.29 (0.6-1.4) mg/dl Glucose 111 H (70-99(Fasting)) mg/dl Calcium 8.1 L (8.6-10.3) mg/dl Intake and Output 08/25/25 08/25/25 08/25/25 06:59 14:59 22:59 Intake Total 968 / 2308 780 / 780 Balance 968 / 2308 780 / 780 Intake: IV 868 / 1868 Sodium Chloride 0.9% 1,000 ml @ 868 / 1868 80 mls/hr IV .[id number] [facility] Rx#: [id number] Oral 100 / 440 780 / 780 Diagnostic Findings Telemetry: Atrial flutter, rate very well-controlled at around 70 bpm except with activity when the heart rate increases, often 2-1 at around 140 bpm. PG Care Time/CCT Total # of Minutes Spent Total Time Spent with Patient: Total time spent is greater than 50% in coordination of care (as documented) at patient's floor/unit and/or counseling patient: Coding Level of Care Code 58051 SUB INP/OBS CARE 3/50MIN Diagnoses Palpitations R00.2 Elevated troponin R79.89 Atrial flutter I48.92
[2025-08-25] MEDS: FLECAINIDE ACETATE 100 MG TABLET PO SCH (17:35)
[2025-08-26 07:06] LABS: Hematocrit (blood only) 36.7 % (42.0-52.0); Hemoglobin 12.1 g/dL (14.0-18.0); Immature Granulocytes # (auto) 0.05 K/uL (0.01-0.20); Immature Granulocytes % (auto) 0.6 %; Mean Corpuscular Hemoglobin 29.6 pg (25.0-34.0); Mean Corpuscular Volume 89.7 fL (80.0-100.0); Platelet Count 203 K/uL (130-400); RDW Standard Deviation 43.5 fL (36.4-46.3); Red Blood Count 4.09 M/uL (4.70-6.10); White Blood Count 8.54 K/ul (4.8-10.8)
[2025-08-26 07:29] LABS: Anion Gap 5.0 (3-11); Blood Urea Nitrogen 24.0 mg/dl (6-23); Calcium 8.5 mg/dl (8.6-10.3); Carbon Dioxide 26.0 mmol/L (21-32); Chloride 110.0 mmol/L (98-107); Creatinine Clr Calc Pharmacy 54.7 ml/min; Glucose 115.0 mg/dl (70-99(Fasting)); Potassium 4.2 mmol/L (3.5-5.1); Sodium 141.0 mmol/L (136-145)
[2025-08-26 08:05] VITALS: RESP 16
--- NOTE | 2025-08-26 08:47 | Hospitalist Progress Note ---
"Date of Service August 26, 2025 Assessment & Plan (1) Weakness: (2) Diarrhea: (3) Palpitations: (4) CAMILA (acute kidney injury): Plan Pt is a 74 y/o M with a PMHx significant for HTN, HLD, BPH, Asthma, Neuropathy, Prediabetes who presented to the ED c/o weakness and diarrhea #Atrial Flutter w/out RVR - Noted overnight 08/23 w/ HR 140s; Troponin Peaked 35.4 08/23; EKG on admission w/out signs of STEMI; Echo 08/25 with mild LVH and apical anterolateral hypokinesis -Cardio Consulted: Initiated Eliquis and Flecanide -Continue Metoprolol Tartrate 25mg PO BID -Continue to Monitor #CAMILA - RESOLVED; 1.92 Cr in ED -Suspect from dehydration -Discontinue IVF -Continue to trend BMP #Weakness | Diarrhea - RESOLVED; pt asx; CXR w/out acute processes; Procal 5.3 on admission; Stool Study 08/23 negative -Deferred Abx at this time d/t pt stability, no clear signs of infection, and improving Procal/CRP -CBC, BMP, Procalcitonin, and CRP in AM -PT/OT Eval: Pt safe to return to previous living arrangement #HLD | HTN - No acute concerns; Continue Rosuvastatin #BPH - No acute concerns; Continue Tamsulosin, Finasteride #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 VS: reviewed, unremarkable Skin: Warm and dry; no lesions or ulcerations Respiratory: CTA bilat, no adventitious sounds noted. Chest expansion is full and symmetrical Cardio: Reg rate, w/ irreg rhythm, no murmurs Abdomen: Round, normoactive BS x4, nontender to palpation MSK: FROM of extremities, no deformities Extremities: no edema Neuro: A&Ox4, cooperative Results & Data Results & Data Vital Signs (Past 12 Hours) Vital Signs Temp Pulse Pulse Resp BP BP Pulse Ox 08/26/25 08:04 98.1 F 75 16 159/76 H 98 08/26/25 07:25 71 08/26/25 04:09 98.1 F 82 18 117/65 95 08/25/25 23:00 84 08/25/25 22:42 97.5 F L 80 18 111/64 95 O2 Del Method 08/26/25 08:04 Room Air 08/26/25 07:25 08/26/25 04:09 Room Air 08/25/25 23:00 08/25/25 22:42 Room Air Laboratory Results Reviewed: CBC, BMP, Procal, CRP PG Care Time/CCT Total # of Minutes Spent Total Time Spent with Patient: Total time spent is greater than 50% in coordination of care (as documented) at patient's floor/unit and/or counseling patient: Coding Diagnoses Weakness R53.1 Diarrhea R19.7 Palpitations R00.2 CAMILA (acute kidney injury) N17.9"
--- NOTE | 2025-08-26 13:36 | Cardiology Progress Note ---
Date of Service August 26, 2025 Assessment & Plan (1) Palpitations: (2) Elevated troponin: (3) Atrial flutter: Plan 1. Palpitations: He has had palpitations for almost 30 years, although they were infrequent initially and more frequent recently. I doubt he has had paroxysmal atrial flutter for that long, perhaps he had SVT (his symptoms are suggestive of that historically), possibly that is triggering atrial flutter but that did not occur here in the hospital. His more recent palpitations might be atrial flutter or fibrillation but have not been recorded. We may want to record them if they persist so that we know what he is feeling. 2. Elevated troponin: His troponin was minimally elevated and rapidly returned to normal by the next measurement, I would not pursue coronary evaluation. 3. Atrial flutter: He should remain on an anticoagulant, I started Eliquis. His [id number] score is 2 I believe (age greater than 75). His dose is 5 mg twice a day and he is tolerating it well. He would prefer to eliminate the symptoms of palpitations he has, assuming they are atrial arrhythmias, and therefore antiarrhythmic therapy may be warranted. With normal left ventricular function I did start flecainide yesterday. An electrocardiogram is pending. We will continue the metoprolol and the Eliquis. He does not have long QT on his electrocardiogram, he can go home from my perspective. I did schedule him for an office visit next Friday and that is in his discharge information. Admission and Anticipated Discharge Date Admission Date: August 24, 2025 Subjective He feels well today, no cardiovascular complaints. He has been out of bed in the hallway but only a brief amount of time. He had no difficulty with that level of activity. So far no side effects on his medications. Physical Exam Physical Exam: Constitutional: Alert, cooperative and in no distress. HEENT: Unremarkable Neck: No jugular venous distention, carotid pulses are normal and equal bilaterally without bruits. Pulmonary: Clear to auscultation bilaterally. Cardiac: Regular rhythm with no murmur, gallop or rub. Abdomen: Soft, nontender with normal bowel sounds. Extremities: No edema. Neurologic: No focal findings. Gait is steady. Skin: No rash, ecchymoses or petechiae. Results & Data Vital Signs (Past 12 Hours) Vital Signs Temp Pulse Pulse Resp BP BP Pulse Ox 08/26/25 08:04 36.7 C 75 16 159/76 H 98 08/26/25 07:25 71 08/26/25 04:09 36.7 C 82 18 117/65 95 O2 Del Method 08/26/25 08:04 Room Air 08/26/25 07:25 08/26/25 04:09 Room Air Laboratory Results CBC 08/26/25 Range/Units 06:49 WBC 8.54 (4.8-10.8) K/ul RBC 4.09 L (4.70-6.10) M/uL Hgb 12.1 L (14.0-18.0) g/dL Hct 36.7 L (42.0-52.0) % Plt Count 203 (130-400) K/uL Neut # (Auto) 6.00 (1.40-6.50) K/uL Lymph # (Auto) 1.22 (1.20-3.40) K/uL Riley # (Auto) 1.15 H (0.11-0.59) K/uL Eos # (Auto) 0.07 (0.00-0.50) K/uL Baso # (Auto) 0.05 (0.00-0.20) K/uL Comprehensive Metabolic Panel 08/26/25 Range/Units 06:49 Sodium 141 (136-145) mmol/L Potassium 4.2 (3.5-5.1) mmol/L Chloride 110 H (98-107) mmol/L Carbon Dioxide 26 (21-32) mmol/L BUN 24 H (6-23) mg/dl Creatinine 1.41 H (0.6-1.4) mg/dl Glucose 115 H (70-99(Fasting)) mg/dl Calcium 8.5 L (8.6-10.3) mg/dl Intake and Output 08/25/25 08/26/25 08/26/25 22:59 06:59 14:59 Intake Total 999 Balance 999 Intake: IV 1000 / 1000 Sodium Chloride 0.9% 1,000 ml @ 1000 / 1000 80 mls/hr IV .[id number] [facility] Rx#: [id number] Other: # Unmeasured Voids 1 Diagnostic Findings Telemetry: Atrial flutter, rate typically around 70, higher with exertion. ECG on flecainide: Atrial flutter, normal QT interval PG Care Time/CCT Total # of Minutes Spent Total Time Spent with Patient: Total time spent is greater than 50% in coordination of care (as documented) at patient's floor/unit and/or counseling patient: Coding Level of Care Code 79623 SUB INP/OBS CARE 2/35MIN Diagnoses Palpitations R00.2 Elevated troponin R79.89 Atrial flutter I48.92
[2025-08-26 15:52] VITALS: PULSE 68; TEMP 98.2; O2SAT 97
--- NOTE | 2025-08-26 16:01 | Discharge Summary ---
"Discharge Summary Date of Service August 26, 2025 Principal Dx & Hospital Course #1 = Principal Diagnosis (1) Weakness: (2) Diarrhea: (3) Palpitations: (4) CAMILA (acute kidney injury): Plan #Weakness | Diarrhea - Pt is a 74 y/o M with a PMHx significant for HTN, HLD, BPH, Asthma, Neuropathy, Prediabetes who presented to the ED c/o weakness and diarrhea. CXR on admission was without acute processes and Stool Study on 08/23 was negative. Antibiotics were deferred and pts weakness and diarrhea resolved naturally. Procalcitonin down trended during inpt stay and WBC normalized. Pt was evaluated by PT/OT who agreed that it is safe for pt to return to previous living arrangement. #Atrial Flutter w/out RVR - Noted overnight 08/23 w/ HR 140s; Troponin Peaked 35.4 on 08/23; EKG on admission w/out signs of STEMI; Echo 08/25 with mild LVH and apical anterolateral hypokinesis. Pt was started on Metoprolol Tartrate, Eliquis, and Flecanide. Pt was seen by Financing Analyst, Dr Covarrubias, while inpt. Should maintain F/U appointment next Friday 08/31. #CAMILA - RESOLVED; Most likely d/t dehydration from episodes of diarrhea. Pt should continue to hydrate with water. 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 VS: reviewed, unremarkable Skin: Warm and dry; no lesions or ulcerations Respiratory: CTA bilat, no adventitious sounds noted. Chest expansion is full and symmetrical Cardio: Reg rate, w/ irreg rhythm, no murmurs Abdomen: Round, normoactive BS x4, nontender to palpation MSK: FROM of extremities, no deformities Extremities: no edema Neuro: A&Ox4, cooperative Discharge Plan Discharge Items Patient Disposition: Home - Self-Care Reason For Visit: WEAKNESS Discharge Diagnosis: Atrial Flutter Condition on Discharge: Good Activity: Resume your previous activity Non-emergency contact: Primary Care Provider and Financing Analyst Call non-emergency contact if: you have any medication questions and your symptoms worsen Follow-up/Referrals: Clint Covarrubias MD [Physician] - 08/31/25 3:00 pm Mariana Mckay MD [Primary Care Provider] - (Follow-up within 1 week ) Diet: Regular Addtl Attending Provider Instructions: Hospital Course: You were admitted to the hospital for weakness and diarrhea. While you were int he ED, a CXR demonstrated that there were no acute processes taking place. Additionally, a Stool Study was preformed and was negative for infection. Other infectious markers improved during your inpatient stay without the use of antibiotics. Additionally, your kidney markers were lightly elevated while you were in the hospital, which was improved with IV hydration. Incidentally, it was discovered that you suffer from a condition known as Atrial Flutter which was confirmed via telemetry during your stay. 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 You were started on 3 new medications during your stay: Metoprolol Tartrate, Eliquis, and Flecainide. Discharge Plan: -Please Maintain your Appointment with Dr Covarrubias on 08/31 at 3:00 PM -Please take the following medications as prescribed to you: Metoprolol Tartrate, Flecainide, and Eliquis -Please continue to drink plenty of water -You should additionally follow-up with your Family doctor within 1 week of being discharged from the hospital Medications: Your medication list has been reviewed and reconciled upon discharge to ensure accuracy and continuity of care. An updated list of all your medications is included with your hospital discharge paperwork. Please review this list closely, and make note of any changes. We sent a new medication called Metoprolol Tartrate to your pharmacy. Take 2 times a day. Start this evening. This is a medication to help with your heart rate . We sent a new medication called Flecainide to your pharmacy. Take 2 times a dayl. Start this evening. This is a medication to help with your heart rhythm. We sent a new medication called Eliquis to your pharmacy. Take 2 times a day. Start this evening. This is a blood thinner to help prevent blood clots that could result from your atrial flutter. Take your medications as instructed; do not skip a dose of your medicines. Make sure all of your doctors know every medicine you are taking (including agwg-ike-zdxhvox medicines, vitamins, and supplements). Call your primary care provider before taking any new medicines (including over- the-counter medicines, vitamins, and supplements), because some of these may interact with your current medications, or may make your symptoms worse. Tell your primary care provider if you cannot afford your medications. Activity: You can do normal everyday activities as your body allows. Take rest breaks if you feel tired. Do not overexert. Stop activity if you have pain, shortness of breath or feel dizzy. Follow-up appointments: Make an appointment with your primary care physician within one week of discharge. A copy of this summary will be sent to them. Every time you see your primary care physician, or any other doctor, bring your medication list, and a list of questions. CONTACT YOUR PRIMARY CARE PROVIDER if you experience any of the following: Shortness of breath or difficulty breathing Fevers or chills Feeling tired with normal activity or experiencing dizziness or fainting Difficulty following your treatment plan, or difficulty taking medications CALL 911 OR GO TO THE EMERGENCY DEPARTMENT if you experience any of the foll owing: Severe abdominal pain or nausea/vomiting Severe chest pain, or chest pain that radiates (moves) to your jaw or arm Sudden, severe shortness of breath or difficulty breathing Thank you for allowing us to participate in your care. Pending Studies at Discharge: No Stand-Alone Forms: [facility] C[facility] Medications and DC Order Prescriptions: New flecainide 100 mg Tablet 100 mg PO Q12 30 Days Qty: 60 0RF metoprolol tartrate 25 mg Tablet 25 mg PO BID 30 Days Qty: 60 0RF Eliquis 5 mg Tablet 5 mg PO BID 30 Days Qty: 60 0RF Continued amitriptyline 25 mg tablet 25 mg PO Q OTHER DAY Qty: 30 5RF Patient Comments: morning finasteride 5 mg tablet 5 mg PO HS Qty: 90 3RF multivitamin [Daily Multi-Vitamin] Tablet 1 tab PO DAILY Patient Comments: 08/23- otc unable to verify cholecalciferol (vitamin D3) 50 mcg (2,000 unit) capsule 50 mcg PO DAILY Qty: 90 3RF Patient Comments: softgel Rx Instructions: with heaviest meal of the day cyanocobalamin (vitamin B-12) 1,000 mcg tablet, sublingual 1,000 mcg sublingual DAILY zinc 50 mg Tablet 0 mg PO DAILY Patient Comments: 08/23-no fill history unable to verify gabapentin 100 mg capsule 0 mg PO UD Patient Comments: 08/23-no fill history unable to verify rosuvastatin 20 mg tablet 20 mg PO HS tamsulosin 0.4 mg capsule 0.4 mg PO .Q OTHER DAY Discharge Orders: Discharge Order (Routine); Ordered 08/26/25 Ordered By: Kiera Oliver/Other Patient Handouts: Understanding Atrial Flutter Admission Data Admit Date/Time: 08/24/25 16:49 Attending Provider: Stewart Oviedo Admit Provider: Stewart Oviedo Primary Care Provider: Mariana Mckay V. Other Providers: Stewart Oviedo; Rohith Veliz; Paco Ansari; Noe Kim; Clint Covarrubias; Alton Parr Jr; Dani De Dios; Leslie Salomon; Ev Anderson; Donald Healy; Donald Rubio; Nery Danielson; Wesly Lackey; Beba Mary; Wesly Durant; Lobito Raymond; Jaun Burt; Alin Lopez; Jordan Stevens; Chelsea Mariee; Joann Reyes Hospital Stay Data Consultations 08/23/25 14:20 ED Decision to Admit Stat 08/24/25 10:48 Consult Cardiology Routine Discharge Instructions Given to Patient (Per Discharging Provider) Hospital Course: You were admitted to the hospital for weakness and diarrhea. While you were int he ED, a CXR demonstrated that there were no acute processes taking place. Additionally, a Stool Study was preformed and was negative for infection. Other infectious markers improved during your inpatient stay without the use of antibiotics. Additionally, your kidney markers were lightly elevated while you were in the hospital, which was improved with IV hydration. Incidentally, it was discovered that you suffer from a condition known as Atrial Flutter which was confirmed via telemetry during your stay. 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 You were started on 3 new medications during your stay: Metoprolol Tartrate, Eliquis, and Flecainide. Discharge Plan: -Please Maintain your Appointment with Dr Covarrubias on 08/31 at 3:00 PM -Please take the following medications as prescribed to you: Metoprolol Tartrate, Flecainide, and Eliquis -Please continue to drink plenty of water -You should additionally follow-up with your Family doctor within 1 week of being discharged from the hospital Medications: Your medication list has been reviewed and reconciled upon discharge to ensure accuracy and continuity of care. An updated list of all your medications is included with your hospital discharge paperwork. Please review this list closely, and make note of any changes. We sent a new medication called Metoprolol Tartrate to your pharmacy. Take 2 times a day. Start this evening. This is a medication to help with your heart rate . We sent a new medication called Flecainide to your pharmacy. Take 2 times a dayl. Start this evening. This is a medication to help with your heart rhythm. We sent a new medication called Eliquis to your pharmacy. Take 2 times a day. Start this evening. This is a blood thinner to help prevent blood clots that could result from your atrial flutter. Take your medications as instructed; do not skip a dose of your medicines. Make sure all of your doctors know every medicine you are taking (including spgn-aii-rqixcbu medicines, vitamins, and supplements). Call your primary care provider before taking any new medicines (including over- the-counter medicines, vitamins, and supplements), because some of these may interact with your current medications, or may make your symptoms worse. Tell your primary care provider if you cannot afford your medications. Activity: You can do normal everyday activities as your body allows. Take rest breaks if you feel tired. Do not overexert. Stop activity if you have pain, shortness of breath or feel dizzy. Follow-up appointments: Make an appointment with your primary care physician within one week of discharge. A copy of this summary will be sent to them. Every time you see your primary care physician, or any other doctor, bring your medication list, and a list of questions. CONTACT YOUR PRIMARY CARE PROVIDER if you experience any of the following: Shortness of breath or difficulty breathing Fevers or chills Feeling tired with normal activity or experiencing dizziness or fainting Difficulty following your treatment plan, or difficulty taking medications CALL 911 OR GO TO THE EMERGENCY DEPARTMENT if you experience any of the following: Severe abdominal pain or nausea/vomiting Severe chest pain, or chest pain that radiates (moves) to your jaw or arm Sudden, severe shortness of breath or difficulty breathing Thank you for allowing us to participate in your care. Total Time Total Time Spent Total Time Spent (In Minutes): Time spent day of discharge 45 minutes including direct patient care, medication reconciliation, documentation, review of labs and images, and coordination of care. Coding Level of Care Code 80399 INP/OBS DISCH >30 MIN Diagnoses Weakness R53.1 Diarrhea R19.7 Palpitations R00.2 CAMILA (acute kidney injury) N17.9"
--- NOTE | 2025-08-26 18:12 | Electrocardiogram Report ---
Test Reason : Blood Pressure : */* mmHG Vent. Rate : 98 BPM Atrial Rate : 98 BPM P-R Int : 156 ms QRS Dur : 86 ms QT Int : 350 ms P-R-T Axes : 59 30 68 degrees QTcB Int : 446 ms Normal sinus rhythm Normal ECG No previous ECGs available Confirmed by Clint Covarrubias ([id number]) on 08/26/2025 6:12:44 PM Referred By: Mariana Mckay Confirmed By: Clint Covarrubias
[2025-08-26 18:34] VITALS: BP 117/65
== END 2025-08-26 19:09 | disposition home or self-care (01) | DRG 309 ==
LOC: ED 11:32 → 2N 11:32